=== PATIENT | female | born 1960 | race Caucasian/White ===

== ENCOUNTER 2018-11-23 20:04 | Emergency (ER) | payer BC ==
[~2018-11-23] VITALS: Ht 172.7 cm; Wt 63.8 kg
[2018-11-23 20:26] VITALS: Ht 172.7 cm; Wt 63.8 kg
[2018-11-23] MEDS ORDERED: SOD CHLORIDE 0.9% 1,000 ML IV STA (21:51)
[2018-11-23] MEDS ORDERED: MINO50CA3 PO (21:55)
--- NOTE | 2018-11-23 23:16 | ERD ---
ER Documentation Chief Complaint Chief Complaint seeing 'spots' in L eye since 1900; painless HPI 58-year-old woman complaining of blurry vision to the peripheral field of the left eye beginning at 7 PM (about 3 hours prior to my evaluation). She describes black floaters and black spots beginning suddenly. She denies any recent trauma but she does have a history of severe myopia and requires the use of eyeglasses, furthermore both her father and sisters suffered spontaneous retinal detachments early in life, specifically her sister who had retinal detachment at age 20. She describes a mild frontal headache for the last week but denies left-sided headache or left neck pain, no chest pain or shortness of breath, no paresthesias, no fevers or chills, no travel. ROS All systems reviewed and are negative except as per history of present illness. Medications Home Meds Reported Medications Minocycline Hcl* (Minocycline Hcl*) 50 Mg Capsule, 50 MG PO DAILY, CAP 11/23/18 Allergies Allergies: Coded Allergies: No Known Allergy (Unverified , 11/23/18) PMhx/Soc Medical and Surgical Hx: pt denies Medical Hx History of Surgery: Yes (tonsillectomy) Hx Alcohol Use: Yes (social) Hx Substance Use: No Hx Tobacco Use: No Smoking Status: Never smoker FmHx Family History: No diabetes Physical Exam Vitals Vital Signs Date Temp Pulse Resp B/P (MAP) Pulse Ox O2 O2 Flow FiO2 Time Delivery Rate 11/23/18 98.9 98 18 157/79 98 20:26 (105) Physical Exam Const: No acute distress, afebrile HEENT: Pupils equal round reactive to light, extraocular movements intact without pain, her central visual acuity was within normal limits when tested while wearing eyeglasses but peripheral vision to the left eye diminished. No ptosis, no carotid bruit auscultated no thrills palpated in the neck. Patient has moist mucous membranes, pink and clear conjunctival Resp: Clear to auscultation bilaterally Cardio: Regular rate and rhythm, no murmurs Abd: Soft, non tender, non distended. Normal bowel sounds Skin: No petechiae or rashes Back: No midline or flank tenderness Ext: No cyanosis, or edema Neur: Awake and alert x3, no focal deficits or facial asymmetry, moving all extremities Psych: Normal Mood and Affect Result Diagram: 11/23/18215511/[id number]/182155 Results 24 hrs Laboratory Tests Test 11/23/18 21:56 White Blood Count 5.5 10^3/ul Red Blood Count 4.01 10^6/ul Hemoglobin 11.4 g/dl Hematocrit 35.8 % Mean Corpuscular Volume 89.3 fl Mean Corpuscular Hemoglobin 28.4 pg Mean Corpuscular Hemoglobin Concent 31.8 g/dl Red Cell Distribution Width 14.5 % Platelet Count 194 10^3/UL Mean Platelet Volume 10.5 fl Immature Granulocytes % 0.200 % Neutrophils % 53.2 % Lymphocytes % 35.6 % Monocytes % 10.0 % Eosinophils % 0.5 % Basophils % 0.5 % Nucleated Red Blood Cells % 0.0 /100WBC Immature Granulocytes # 0.010 10^3/ul Neutrophils # 2.9 10^3/ul Lymphocytes # 2.0 10^3/ul Monocytes # 0.6 10^3/ul Eosinophils # 0.0 10^3/ul Basophils # 0.0 10^3/ul Nucleated Red Blood Cells # 0.0 10^3/ul Prothrombin Time 12.7 Sec Prothrombin Time Ratio 1.0 INR International Normalized Ratio 0.94 Activated Partial Thromboplast Time 31.7 Sec Sodium Level 140 mmol/L Potassium Level 4.0 mmol/L Chloride Level 105 mmol/L Carbon Dioxide Level 30 mmol/L Anion Gap 5 Blood Urea Nitrogen 18 mg/dl Creatinine 0.85 mg/dl Est Glomerular Filtrat Rate mL/min > 60 mL/min Glucose Level 101 mg/dl Calcium Level 9.5 mg/dl Total Bilirubin 0.1 mg/dl Direct Bilirubin 0.00 mg/dl Indirect Bilirubin 0.1 mg/dl Aspartate Amino Transf (AST/SGOT) 33 IU/L Alanine Aminotransferase (ALT/SGPT) 21 IU/L Alkaline Phosphatase 48 IU/L Total Protein 7.1 g/dl Albumin 4.2 g/dl Globulin 2.90 g/dl Albumin/Globulin Ratio 1.44 Lipase 87 U/L Current Medications Medications Dose Sig/Gretel Start Time Status Last (Trade) Ordered Route PRN Stop Time Admin Dose Reason Admin Sodium 1,000 ml @ Q1H STAT 11/23/18 11/23/18 Chloride 1,000 mls/hr IV 21:51 22:16 11/23/18 22:50 Procedures/MDM IV line was established patient was placed on security monitor rhythm strip revealed a sinus rhythm at about 80 bpm with upright P and T waves. Patient was afebrile CBC and electrolytes are normal, liver function tests are normal, coagulation profile normal. I administered 1 L normal saline IV. Bilateral orbital ultrasound was performed revealing left-sided retinal detachment consistent with patient's presentation. Please refer to radiologist dictation for full report. I spoke to Dr. Brown regarding the patient's presentation, symptomatology, ultrasound findings. He agreed to contact the patient's health casualty insurance claim adjuster to set up transfer to facility with retinal specialists who can perform emergent ophthalmologic surgery Critical Care: Time: 43 minutes, this was time separate from other billable procedures. Treatments/Evaluations: Close monitoring and treatment of unstable vital signs, cardiorespiratory, and neurologic status, while maintaining tight balance of fluid, respiratory, and cardiac interventions. Spoke to the patient and her who is at the bedside regarding the plan, they agreed and are awaiting transfer to the health insurance contracted hospital for higher level of care Departure Diagnosis: Primary Impression: Acute partial detachment of retina of left eye Additional Impression: Severe myopia Laterality: bilateral Qualified Codes: H52.13 - Myopia, bilateral Condition: Fair TYESHA NICHOLS MD Nov 23, 2018 22:57
[2018-11-24 03:19] VITALS: BP 120/87; PULSE 74; RESP 16
== END 2018-11-24 03:21 | disposition short-term general hospital (02) ==
LOC: E/R 20:04
DX: H33.8 Other retinal detachments (principal); H52.13 Myopia, bilateral
CPT/HCPCS: 76536; 80053; 83690; 85025; 85610; 85730; J7030; 36415